=== PATIENT | male | born 1930 | race Caucasian/White ===

== ENCOUNTER 2017-12-28 21:44 | Emergency (ER) | payer MEDICARE, OTHER ==
[2017-12-28 21:56] VITALS: BP 126/79
--- NOTE | 2017-12-28 22:04 | EDPHY ---
H & P Stated Complaint: was standing on a chair and fell off hurting left shoulder Time Seen by Provider: 12/28/17 21:58 HPI/ROS: CHIEF COMPLAINT: Left shoulder pain post mechanical fall HISTORY OF PRESENT ILLNESS: 87-year-old male arrives via private vehicle complaining of acute left shoulder pain. He was standing on a chair in his kitchen when the chair slipped and landed on his left shoulder. He is complaining of reproducible pain with palpation range of motion. No head injury. This was a mechanical non syncopal episode. No back pain. No midline C-spine pain. No left upper extremity pain beyond his left shoulder pain PCP: Danial REVIEW OF SYSTEMS: A ten point review of systems was performed and is negative with the exception of the items mentioned in the HPI PAST MEDICAL/SURGICAL HISTORY: no anticoagulant use, no relevant medical/ surgical history SOCIAL HISTORY: denies alcohol use at time of incident PHYSICAL EXAM 1) GENERAL: Well-developed, well-nourished, alert and oriented. Appears to be in no acute distress. Answering questions appropriately. 2) HEAD: Normocephalic, atraumatic 3) HEENT: Pupils equal, round, reactive to light bilaterally. Negative Horners. Nasopharynx, oropharynx, clear. No deformity or angulation of nose. No septal hematoma. No rhinorrhea. No oral trauma. Ears bilaterally with normal tympanic membranes. No hemotympanum. No fluid or blood in the external auditory canal. No raccoon eyes. No Mac sign. 4) NECK: No cervical collar is on. Posterior cervical spine is nontender, no stepoff, no effusion. Full range of motion which does not elicit any midline cervical spine pain, no posterior midline tenderness, no step-off. 5) LUNGS: Clear to auscultation bilaterally, no wheezes, no rhonchi, no retractions. No obvious signs of trauma. No chest wall pain. No flaring, no grunting. Moving symmetrically. No crepitus. 6) HEART: [Regular rate and rhythm, 7) ABDOMEN: No guarding, no rebound, no focal tenderness, no peritoneal signs, no signs of trauma, no ecchymosis 8) MUSCULOSKELETAL: Left upper extremity: Guarding left shoulder, tender to palpation left shoulder. No visible trauma. Moving all extremities, no focal areas of tenderness, no obvious trauma. 9) BACK: No midline vertebral tenderness, no fluctuance, no step-off, no obvious trauma, no visual or palpable abnormality. 10) SKIN: No laceration. No abrasion DIFFERENTIAL DIAGNOSIS: In no particular order including but not limited to fracture, sprain, strain, dislocation - Personal History Current Tetanus/Diphtheria Vaccine: Yes Current Tetanus Diphtheria and Acellular Pertussis (TDAP): Yes - Medical/Surgical History Hx Asthma: No Hx Chronic Respiratory Disease: No Hx Diabetes: No Hx Cardiac Disease: No Hx Renal Disease: Yes Hx Cirrhosis: No Hx Alcoholism: No Hx HIV/AIDS: No Hx Splenectomy or Spleen Trauma: No Other PMH: carotid artery surgery - Social History Smoking Status: Current every day smoker Constitutional: Initial Vital Signs Temperature (C) 36.6 C 12/28/17 21:53 Heart Rate 90 12/28/17 21:53 Respiratory Rate 16 12/28/17 21:53 Blood Pressure 126/79 H 12/28/17 21:53 O2 Sat (%) 94 12/28/17 21:53 O2 Delivery Mode Room Air Allergies/Adverse Reactions: No Known Allergies Allergy (Verified 12/28/17 21:56) Home Medications: Medication Instructions Recorded Aspirin [Aspirin 81mg (OTC)] 81 mg PO DAILY18 03/15/13 Lisinopril [Zestril 2.5 mg (RX)] 0 mg PO DAILY 03/15/13 Lisinopril [Zestril 2.5 mg (RX)] 2.5 mg PO DAILY18 03/15/13 Multivitamins [Tab-A-Zee] 1 each PO DAILY18 03/15/13 Pharmacy Completed 03/15/13 03/15/13 Reconciled 03/15/13 03/15/13 Simvastatin 9 gm [facility] 03/15/13 Simvastatin [Zocor 40 mg (RX)] 40 mg PO DAILY18 03/15/13 Medical Decision Making - Diagnostics Imaging Results: Imaging Impressions Shoulder X-Ray 12/28/17 22:03 Impression: 1. 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 2. No definite fracture. Images reviewed by myself Imaging: I viewed and interpreted images myself Procedures: Procedure: Splint A sling was applied by ER senior mechanical technician. After application of the splint I returned and re-examined the patient. The splint was adequately immobilizing the joint and distal to the splint the patient's circulation and sensation were intact. Patient shows no signs of compartment syndrome. Was given orthopedic precautions. ED Course/Re-evaluation: Patient was re-evaluated with serial examinations was recently at 10:45 p.m.. Discussed limitations of x-ray in the diagnosis of acute left shoulder pain. No definitive acute osseous abnormalities are visualized. I have recommended follow up with [facility]oped[facility] at [facility]. He has an upcoming appointment with his PCP at [facility] in 3 days I recommend he keep. I have given him copies of his x- rays on a CD. Been given a sling. Tylenol and Motrin for pain. He feels comfortable being discharged. Usual and customary discharge precautions and instructions provided. Care of patient under supervision of secondary supervising physician Dr Olvera . Departure - Departure Disposition: Home, Routine, Self-Care Clinical Impression: Sprain of left shoulder Qualifiers: Encounter type: initial encounter Shoulder sprain type: unspecified sprain Qualified Code(s): S43.402A - Unspecified sprain of left shoulder joint, initial encounter Condition: Good Instructions: Shoulder Sprain (ED) Additional Instructions: Return to the ER immediately if you experience discoloration, have worsening pain, numbness, tingling, or any other symptoms that concern you. If you received x-rays in the emergency department today, be advised, that ligamentous , tendon, muscular, and other non-bony injury cannot be fully ruled out. Try to keep your affected extremity elevated above the level of your chest, and keep cold packs on the affected area, for the next 48 hours. Adult Pain & Fever Control: We recommend Acetaminophen (Tylenol) and Ibuprofen (Motrin,Advil) for pain and fever control. When fever is high or pain severe, both drugs can be used at the same time, but at different intervals. Please note the time differences. Your dose is: Acetaminophen 650mg every 4 to 6 hours Ibuprofen 600mg every 6 hours with food OR Referrals: Keep, your [facility] appointment in 3 days. Take your x-rays [Other] - As per Instructions
== END 2017-12-28 23:10 | disposition home or self-care (01) ==
DX: S43.402A Unspecified sprain of left shoulder joint, initial encounter (principal); F17.200 Nicotine dependence, unspecified, uncomplicated; Z79.82 Long term (current) use of aspirin; W07.XXXA Fall from chair, initial encounter; Y92.010 Kitchen of single-family (private) house as the place of occurrence of the external cause; Y99.8 Other external cause status; Y93.89 Activity, other specified